=== PATIENT | female | born 1990 | race Caucasian/White ===

== ENCOUNTER 2017-12-19 09:00 | Observation (INO) | payer OTHER ==
[~2017-12-19] VITALS: Ht 162 cm; Wt 79.4 kg
[2017-12-19] MEDS ORDERED: PREN-154 PO (10:12)
[2017-12-19 10:16] VITALS: BP 103/64
== END 2017-12-19 10:00 | disposition home or self-care (01) ==
LOC: 4S 09:00
PROVIDERS: ADMIT Obstetrics & Gynecology; ATTEND Obstetrics & Gynecology
DX: O48.0 Post-term pregnancy (principal); Z3A.40 40 weeks gestation of pregnancy
CPT/HCPCS: 59025; G0378

== ENCOUNTER 2017-12-24 10:00 | Inpatient (IN) | payer OTHER ==
[~2017-12-24] VITALS: Ht 162.6 cm; Wt 78.0 kg
[~2017-12-24 10:00] MED LIST: PREN-154 PO
[2017-12-24] MEDS ORDERED: OXYTOCIN 30 UNITS/LACT RINGERS 500 ML IV ONE (12:03)
[2017-12-24] MEDS ORDERED: RINGERS SOLUTION,LACTATED 1,000 ML IV PRN (12:03)
[2017-12-24] MEDS ORDERED: METOCLOPRAMIDE HCL 5 MG/ML 2 ML VIAL IVP PRN (12:15)
[2017-12-24] MEDS ORDERED: CITRIC ACID/SODIUM CITRATE 30 ML SOLUTION UDCUP PO PRN (12:15)
[2017-12-24] MEDS: RINGERS SOLUTION,LACTATED 1,000 ML IV SCH ×3 (13:14→23:16)
[2017-12-24 13:23] LABS: BASOPHILS % (AUTO) 0.5 % (0.0-2.0); EOSINOPHILS % (AUTO) 1.6 % (1.0-6.0); HEMATOCRIT 34.5 % (36-46); HEMOGLOBIN 11.4 g/dL (12.0-16.0); LYMPHOCYTES # (AUTO) 2.2 K/uL (1.0-4.8); LYMPHOCYTES % (AUTO) 20.6 % (22.0-44.0); MEAN CORPUSCULAR HEMOGLOBIN 24.5 pg (26.0-34.0); MEAN CORPUSCULAR VOLUME 74 fL (80-100); MONOCYTES # (AUTO) 0.6 K/uL (0.1-1.0); MONOCYTES % (AUTO) 5.7 % (2.0-9.0); NEUTROPHILS # (AUTO) 7.5 K/uL (1.8-7.7); NEUTROPHILS % (AUTO) 71.6 % (40.0-70.0); PLATELET COUNT (AUTO)-OB 202 K/uL (150-450); RED BLOOD CELL COUNT(AUTO) 4.65 MIL/uL (4.00-5.20); RED CELL DISTRIBUTION WIDTH 15.8 % (11.5-14.5)
[2017-12-24] MEDS ORDERED: DINOPROSTONE 10 MG VAGINAL SUPPOSITORY VG ONE (13:30)
[2017-12-24] MEDS ORDERED: OXYGEN THERAPY IH SCH (20:00)
[2017-12-25] MEDS ORDERED: -PHARMACY NOTE- MISC ONE (00:15)
[2017-12-25] MEDS ORDERED: ROPIVACAINE HCL/PF 0.2% 100 ML ED ONE ×2 (01:37→09:40)
[2017-12-25] MEDS ORDERED: OXYTOCIN 30 UNITS/LACT RINGERS 500 ML IV PRN ×2 (05:53→06:00)
[2017-12-25] MEDS ORDERED: OXYTOCIN 30 UNITS/LACT RINGERS 500 ML IV ONE (05:56)
[2017-12-25] MEDS: RINGERS SOLUTION,LACTATED 1,000 ML IV SCH ×2 (08:00→16:00)
[2017-12-25] MEDS ORDERED: CeFAZolin 2 GM/DEXTROSE 50 ML IV ONE ×2 (16:48→17:00)
[2017-12-25] MEDS ORDERED: GLYCERIN/WITCH HAZEL LEAF 40 PADS JAR TP PRN (17:30)
[2017-12-25] MEDS ORDERED: BENZOCAINE 20%/MENTHOL 56 GM SPRAY CANISTER TP PRN (17:30)
[2017-12-25] MEDS ORDERED: ACETAMINOPHEN/CODEINE 300-30 MG TABLET PO PRN ×2 (17:30)
[2017-12-25] MEDS ORDERED: LANOLIN 7 GM OINTMENT TP PRN (17:30)
[2017-12-25] MEDS: IBUPROFEN 800 MG TABLET PO SCH (19:05)
[2017-12-25] MEDS: MAGNESIUM HYDROXIDE SUSPENSION 30 ML UDCUP PO SCH (21:15)
[2017-12-26] MEDS: IBUPROFEN 800 MG TABLET PO SCH ×3 (01:13→12:00)
[2017-12-26] MEDS: MAGNESIUM HYDROXIDE SUSPENSION 30 ML UDCUP PO SCH (09:00)
[2017-12-26] MEDS ORDERED: DSS100 PO (15:07)
[2017-12-26] MEDS ORDERED: IBUP-2070 PO (15:08)
== END 2017-12-26 16:20 | disposition home or self-care (01) | DRG 775 ==
LOC: OBSVTOIN 10:00 → 4S 10:00
PROVIDERS: ADMIT Obstetrics & Gynecology; ATTEND Obstetrics & Gynecology
PROC: 10D07Z6 Extraction of Products of Conception, Vacuum, Via Natural or Artificial Opening (ICD-10-PCS; principal; 2017-12-25)
PROC: 0W8NXZZ Division of Female Perineum, External Approach (ICD-10-PCS; 2017-12-25)
PROC: 3E0R3BZ Introduction of Anesthetic Agent into Spinal Canal, Percutaneous Approach (ICD-10-PCS; 2017-12-25)
PROC: 00HU33Z Insertion of Infusion Device into Spinal Canal, Percutaneous Approach (ICD-10-PCS; 2017-12-25)
DX: O48.0 Post-term pregnancy (principal); O69.81X0 Labor and delivery complicated by cord around neck, without compression, not applicable or unspecified; O66.5 Attempted application of vacuum extractor and forceps; Z3A.41 41 weeks gestation of pregnancy; Z37.0 Single live birth
CPT/HCPCS: 86850; 86900; 86901; J0690; J2590; J2795; J7120